=== PATIENT | female | born 1985 | race Caucasian/White ===

== ENCOUNTER 2019-02-18 07:47 | Emergency (ER) | payer MEDICAID ==
[2019-02-18] MEDS ORDERED: predniSONE 20 MG TAB PO ONE (08:23)
--- NOTE | 2019-02-18 08:44 | EDPHY ---
H & P Stated Complaint: cough 3 week, congestion Time Seen by Provider: 02/18/19 07:49 HPI/ROS: 33-year-old female presents complaining of cold and cough symptoms for approximately 3 weeks, with some irritation of her throat as well as sinus drainage. She denies fevers or chills. She denies nausea vomiting diarrhea she denies any unusual exposures or recent travel. Review of systems-positive URI symptoms, sore throat, cough General no fever no chills no weakness HEENT no eye pain no eye discharge. No eye redness, pos sore throat Respiratory pos cough, no shortness of breath Cardiac no chest pain, no peripheral edema GI no abdominal pain, no diarrhea, no constipation, no nausea, no vomiting no flank pain, no hematuria, no dysuria Musculoskeletal no myalgias, no joint pain Heme no easy bruising, no easy bleeding Endo no polyuria, no polydipsia Skin no rashes, no pruritus Neuro no syncope, no dizziness, no headaches Psych is no suicidal ideation, no homicidal ideation Source: Patient Exam Limitations: No limitations - Personal History LMP (Females 10-55): Extended Cycle BCP/Inj Tetanus Vaccine Date: 2008 - Medical/Surgical History Hx Asthma: No Hx Chronic Respiratory Disease: No Hx Diabetes: No Hx Cardiac Disease: No Hx Renal Disease: No Hx Cirrhosis: No Hx Alcoholism: No Hx HIV/AIDS: No Hx Splenectomy or Spleen Trauma: No Other PMH: donnell, appy - Family History Significant Family History: No pertinent family hx - Social History Smoking Status: Never smoked Alcohol Use: None Drug Use: None - Physical Exam Exam: 33-year-old female Alert and oriented nontoxic appearance, no acute distress afebrile Atraumatic normocephalic Extraocular muscles intact, anicteric Nares mild yellowish discharge, left turbinates swelling Oropharynx mild erythema no tonsillar swelling no exudate no uvular deviation, tolerating own secretions Neck supple no lymphadenopathy Lungs clear to auscultation bilaterally Heart regular rate and rhythm Abdomen normoactive bowel sounds soft nontender Extremities no cyanosis clubbing or edema Skin no rash Constitutional: Initial Vital Signs Temperature (C) 36.8 C 02/18/19 07:59 Heart Rate 80 02/18/19 07:59 Respiratory Rate 18 02/18/19 07:59 Blood Pressure 103/77 04/21/19 07:59 O2 Sat (%) 96 02/18/19 07:59 O2 Delivery Mode Room Air Allergies/Adverse Reactions: No Known Allergies Allergy (Verified 02/18/19 08:03) Home Medications: Medication Instructions Recorded Fluticasone Nasal [Flonase Nasal 2 sprays NASAL DAILY 7 Days #1 mdi 02/18/19 [place]] Mirana 02/18/19 predniSONE 40 mg PO DAILY 5 Days #10 tablet 02/18/19 Medical Decision Making - Diagnostics Imaging Results: Imaging Impressions Chest X-Ray 02/18/19 08:19 Impression: Mild airways disease. No pneumonia. ED Course/Re-evaluation: Patient seen and evaluated for cold and cough symptoms Chest x-ray Negative for infiltrate, no pleural effusion, no consolidation Consistent with airways disease Impression Bronchitis Plan Patient given prednisone 60 mg p.o. While in the emergency department Home with prescription for prednisone burst, fluticasone for nasal turbinates swelling No evidence for bacterial infection, no antibiotics prescribed Differential Diagnosis: Differential diagnosis considered but not limited to: Pneumonia, bronchitis, URI, sinusitis, pharyngitis, influenza - Data Points Medications Given: Discontinued Medications Prednisone (Prednisone) 60 mg PO EDNOW ONE Stop: 02/18/19 08:24 Last Admin: 02/18/19 08:37 Dose: 60 mg Departure - Departure Disposition: Home, Routine, Self-Care Clinical Impression: Acute bronchitis Condition: Good Instructions: Acute Bronchitis (ED) Referrals: [facility],. [Clinic] - As per Instructions Prescriptions: Fluticasone Nasal [Flonase Nasal [place]] 2 sprays NASAL DAILY 7 Days #1 mdi predniSONE 40 mg PO DAILY 5 Days #10 tablet
[2019-02-18 09:32] VITALS: BP 105/75
== END 2019-02-18 09:30 | disposition home or self-care (01) ==
LOC: CED 07:47
DX: J20.9 Acute bronchitis, unspecified (principal)
CPT/HCPCS: 71046-PO; 99284-ER; J7512